=== PATIENT | female | born 1970 | race Caucasian/White ===

== ENCOUNTER 2020-03-16 05:00 | Day surgery (SDC) | payer OTHER ==
[~2020-03-16 05:00] MED LIST: ALTACE10 MG PO; BANOPHEN25 M1 PO; CABERGOLINE0.5 MG PO; ESTAZOLAM1 MG PO; GABAPENTIN600 MG PO; GEODON20 MG PO; GEODON80 MG PO; LANTUS SOL100 UNIT/1; LIPOCHOL CAPSU1 EACH PO; SYNTHROID100 MCG PO; ZOLOFT100 MG PO
== END 2020-03-16 15:15 | disposition home or self-care (01) ==
LOC: CIR.AMB 05:00
PROVIDERS: ATTEND Obstetrics & Gynecology
DX: N72 Inflammatory disease of cervix uteri (principal); Z20.828 Contact with and (suspected) exposure to other viral communicable diseases

== ENCOUNTER → 2020-04-21 08:43 | Outpatient (CLI) | payer OTHER | END | disposition home or self-care (01) | LOC: LAB 08:43 | PROVIDERS: ATTEND Obstetrics & Gynecology | DX: D50.8 Other iron deficiency anemias (principal); E10.9 Type 1 diabetes mellitus without complications; E03.8 Other specified hypothyroidism; Z01.812 Encounter for preprocedural laboratory examination; R87.618 Other abnormal cytological findings on specimens from cervix uteri; N92.6 Irregular menstruation, unspecified; N84.0 Polyp of corpus uteri; D25.0 Submucous leiomyoma of uterus; R79.1 Abnormal coagulation profile ==

== ENCOUNTER 2020-05-04 05:45 | Day surgery (SDC) | payer OTHER | END 2020-05-04 13:30 | disposition home or self-care (01) | LOC: CIR.AMB 05:45 | PROVIDERS: ATTEND Obstetrics & Gynecology | DX: D25.0 Submucous leiomyoma of uterus (principal); Z20.828 Contact with and (suspected) exposure to other viral communicable diseases ==

== ENCOUNTER 2023-03-27 07:05 | Emergency (ER) | payer OTHER ==
[~2023-03-27] VITALS: Ht 165.1 cm; Wt 52.2 kg
[2023-03-27] MEDS ORDERED: BANOPHEN50 MG PO (07:31)
[2023-03-27] MEDS ORDERED: GLIPIZIDE10 MG PO (07:32)
[2023-03-27] MEDS ORDERED: RAMIPRIL2.5 MG PO (07:32)
[2023-03-27] MEDS ORDERED: SYNTHROID50 MCG PO (07:32)
[2023-03-27] MEDS ORDERED: LORAZEPAM2 MG PO (07:33)
[2023-03-27] MEDS ORDERED: HYDROXYZINE PAM50 MG PO (07:34)
== END 2023-03-27 09:22 | disposition home or self-care (01) ==
LOC: ER 07:05
DX: S01.81XA Laceration without foreign body of other part of head, initial encounter (principal); W18.30XA Fall on same level, unspecified, initial encounter; Y93.9 Activity, unspecified; Y92.9 Unspecified place or not applicable; Y99.9 Unspecified external cause status

== ENCOUNTER 2024-05-01 18:19 | Emergency (ER) | payer OTHER ==
[~2024-05-01] VITALS: Ht 162.6 cm; Wt 57.2 kg
[~2024-05-01 18:19] MED LIST changes: +BANOPHEN50 MG PO; +GLIPIZIDE10 MG PO; +HYDROXYZINE PAM50 MG PO; +LORAZEPAM2 MG PO; +RAMIPRIL2.5 MG PO; +SYNTHROID50 MCG PO
[2024-05-01 20:24] LABS: HEMATOCRIT 38.7 % (36.0-45.00); HEMOGLOBIN 12.7 g/dL (12.0-15.00); MEAN CELL VOLUME 79.5 fL (80.00-100.00); MEAN CORPUSCULAR HGB CONC 32.8 g/dl (32.0-36.0); PLATELET COUNT 194 K/uL (150-450); RED BLOOD COUNT 4.86 M/uL (4.00-6.00); RED CELL DISTRIBUTION WIDTH 13.2 % (11.5-14.5)
[2024-05-01 21:00] LABS: PH,URINE 6.5 (5.0-8.0); URINE APPEARANCE Clear; URINE BILIRRUBIN Negative (NEGATIVE); URINE BLOOD Negative; URINE COLOR Yellow; URINE KETONE Trace (NEGATIVE); URINE LEUKOCYTE Trace; URINE NITRATE Negative; URINE PROTEIN Negative (NEGATIVE); URINE UROBILINOGEN 0.2 E.U./dl
[2024-05-01 21:04] LABS: URINE BACTERIA 47.8 uL (0.0-1933); URINE EPITHELIAL CELLS 2.9 uL (0.0-38.8); URINE RBC 2.2 uL (0.0-20.8); URINE WBC 13.2 uL (0.0-23.2)
[2024-05-01 21:29] LABS: URINE CAST 0.15 uL (0.0-1.40); URINE GLUCOSE 500 MG/DL (NEGATIVE)
== END 2024-05-02 00:42 | disposition home or self-care (01) ==
LOC: ER 18:21
DX: H01.003 Unspecified blepharitis right eye, unspecified eyelid (principal); Z20.822 Contact with and (suspected) exposure to COVID-19